=== PATIENT | female | born 1940 | race Caucasian/White ===

== ENCOUNTER → 2017-08-12 | Outpatient (CLI) | payer MEDICARE ==
--- NOTE | 2017-08-12 16:44 | RAD ---
CT abdomen pelvis without intravenous contrast History: Intermittent left pain at the crest for multiple months. Comparison: None. Technique: CT of the abdomen and pelvis was performed without intravenous or oral contrast. Exposure: One or more of the following individualized dose reduction techniques were utilized for this examination: 1. Automated exposure control 2. Adjustment of the mA and/or kV according to patient size 3. Use of iterative reconstruction technique Findings: Evaluation of solid organs is limited by lack of intravenous contrast. Evaluation of enteric structures may be limited by lack of oral contrast. Images of the lower chest demonstrate irregular consolidated nodule measuring about 1.9 cm which appears to demonstrate a small connection to the diaphragm. Liver, spleen, pancreas, and bilateral adrenal glands unremarkable. Bilateral kidneys and ureters are free stone or obstruction. Aortic atherosclerosis is seen. No bowel obstruction or inflammation is identified. Colonic diverticulosis is noted, but no diverticulitis is appreciated. Uterus has unremarkable appearance. Urinary bladder is unremarkable. No free air or free fluid is seen in the abdomen or pelvis. Levoconvex degenerative scoliosis of the lumbar spine is present. Impression: 1. Irregular nodule involving the left lower lobe 1.9 cm in maximum dimension. Pulmonary malignancy versus parenchymal scarring is also possible. By Fleischner 2017 guidelines, recommend a follow-up chest CT without contrast in 3 months. 2. No abnormality identified in the abdomen or pelvis. 3. Multilevel degeneration lumbar spine including levoconvex scoliosis. Electronically signed by: Indra Licona MD (08/12/2017 4:41 PM) [facility]
== END | disposition home or self-care (01) ==
LOC: CT 12:41
PROVIDERS: ATTEND Family Medicine
DX: M41.86 Other forms of scoliosis, lumbar region (principal); K57.30 Diverticulosis of large intestine without perforation or abscess without bleeding; I70.0 Atherosclerosis of aorta; R91.1 Solitary pulmonary nodule
CPT/HCPCS: 74176

== ENCOUNTER → 2020-05-19 | Outpatient (CLI) | payer MEDICARE ==
--- NOTE | 2020-05-19 15:42 | RAD ---
INDICATION: Reason: LLE PAIN AND SWELLING / Spl. Instructions: / History: COMPARISON: None. TECHNIQUE: Grayscale, color and doppler ultrasound images were obtained of the left lower extremity v enous vasculature. LEFT: No thrombus identified in the common femoral vein, femoral vein, popliteal vein or visualized calf ve ins. IMPRESSION: * No thrombus identified in deep venous system of the left lower extremity. * Cystic structure in the popliteal fossa measuring 63 x 52 x 15 mm. 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 Electronically signed by: Brayan Calderon MD (05/19/2020 3:39 PM) [id number]
== END ==
LOC: US 14:45
PROVIDERS: ATTEND Family Medicine
DX: M71.22 Synovial cyst of popliteal space [Baker], left knee (principal); R22.42 Localized swelling, mass and lump, left lower limb
CPT/HCPCS: 93971